=== PATIENT | male | born 1975 | race African-American/Black ===

== ENCOUNTER 2016-08-21 14:07 | Emergency (ER) ==
[2016-08-21] MEDS ORDERED: ZOFRAN ODT ONE (15:04)
[2016-08-21] MEDS ORDERED: ZOFRAN ODT PO ONE (15:05)
[2016-08-21 15:13] LABS: MANUAL DIFF NEEDED? NO
--- NOTE | 2016-08-21 15:14 | PROVIDER DOCUMENTATION ---
[facility]-EENT General - General Source: patient - History of Present Illness-EENT General EENT Location: reports: ear (L) Quality of Pain: reports: sharp Severity: reports: mild Onset/Duration: reports: other (two weeks) Timing: reports: still present Prearrival Treatment: Initiated no prearrival treatment Associated Symptoms: reports: ear drainage Similar Symptoms Previously?: No Recently seen or treated by another doctor?: No - Ears Ear Problem Symptoms: reports: discharge <Julia Aguila - Last Filed: 08/21/16 16:33> <Polo Mariscal - Last Filed: 08/21/16 16:42> - General Chief Complaint: Earache Stated Complaint: LEFT EAR PAIN Time Seen by Provider: 08/21/16 14:56 Allergies/Adverse Reactions: Patient Allergies Allergy/AdvReac Type Severity Reaction Status Date / Time No Known Allergies Allergy Verified 08/21/16 14:42 Home Medications: Home Medication List Medication Instructions Recorded Confirmed Last Taken Type Acetaminophen with Codeine 1 each PO TID PRN #10 tablet 08/21/16 Unknown Rx [Tylenol with Codeine #3 Tablet] Amoxicillin 500 mg PO BID #20 tablet 08/21/16 Unknown Rx Ondansetron HCl [Zofran] 4 mg PO Q8H PRN #10 tablet 08/21/16 Unknown Rx - History of Present Illness-EE General Nature of Presenting Problem: Pt is a 40 yom who came to the ED with a cc of an ear ache. Pt reports his ear has been bothering him for two weeks. Pt report the left side of his neck swells and he has drainage from his ear. (Julia Aguila) Review of Systems - Adult - REVIEW OF SYSTEMS - ADULT Constitutional: denies: chills, fever Eyes: reports: no symptoms reported Ears, Nose, Mouth & Throat: reports: ear pain. denies: sinus problem, mouth/ dental pain Cardiovascular: reports: no symptoms reported Respiratory: reports: no symptoms reported Gastrointestinal: reports: vomiting. denies: diarrhea, nausea Genitourinary: reports: no symptoms reported Musculoskeletal: reports: no symptoms reported Integumentary: reports: no symptoms reported Neurological: reports: no symptoms reported Psychiatric: reports: no symptoms reported Endocrine: reports: no symptoms reported Hematologic/Lymphatic: reports: no symptoms reported Allergic/Immunologic: reports: no symptoms reported All Other Systems: Reviewed and Negative <Julia Aguila - Last Filed: 08/21/16 16:33> Past History - Adult - PAST MEDICAL HISTORY-ADULT Review of Records: reports: Old Records Reviewed, Nursing Assessment Review Major Childhood Illnesses: reports: denies history Cardiovascular: reports: denies history Respiratory: reports: denies history Gastrointestinal: reports: denies history Obstetrical/Gynecological: reports: denies history Genitourinary: reports: denies history Musculoskeletal: reports: denies history Neurological: reports: denies history Endocrine/Immune: reports: denies history Other Conditions: reports: denies history - PRIOR SURGERIES/PROCEDURES Surgical/Procedure History: reports: hernia repair - IMMUNIZATION STATUS Childhood Immunizations: See Nurse Assessment Flu Vaccine: See Nurse Assessment - FAMILY HISTORY Family History: reviewed, not pertinent - SOCIAL HISTORY Smoking: cigarettes Substance Use: marijuana <Julia Aguila - Last Filed: 08/21/16 16:33> Physical Exam- EENT - Physical Exam EENT Initial Vital Signs Reviewed: Yes General Appearance: alert, mild distress Ear Exam: left ear: TM bulging Nasal Exam: normal inspection Throat Exam: normal mouth inspection, pharynx normal Neck: lymphadenopathy (left) Respiratory: chest non-tender, lungs clear, normal breath sounds Cardiovascular: normal peripheral pulses, regular rate, rhythm, no edema, no gallop, no JVD, no murmur Abdominal Exam: normal bowel sounds Back Exam: normal inspection Extremity: normal range of motion Integumentary: normal color, normal turgor, warm/dry Neurologic: grossly normal Psych/Mental Status: normal mood/affect, normal thought content, normal thought process, oriented x 3 <Julia Aguila - Last Filed: 08/21/16 16:33> Progress - CT/MRI 1 CT Study: Neck (small scattered nodes but no mass or abscess) <Julia Aguila - Last Filed: 08/21/16 16:33> <Polo Mariscal - Last Filed: 08/21/16 16:42> - PLAN OF CARE/RESULTS Progress/Plan/Lab Results: Vital Signs - 24 hr 08/21/16 14:14 Temperature 98.2 F Pulse Rate 85 Respiratory 16 Rate Blood Pressure 148/84 O2 Sat by Pulse 100 Oximetry Orders Category Date Time Status NECK W/CONTRAST [CT] Stat Exams 08/21/16 14:56 Ordered BASIC METABOLIC PANEL [CHEM] Stat Lab 08/21/16 15:04 Ordered CBC WITH ELECTRONIC DIFF [HEME] Stat Lab 08/21/16 15:08 Ordered MONO SCREEN [SERO] Stat Lab 08/21/16 15:08 Ordered Ondansetron Odt [Zofran Odt] Med 08/21/16 15:04 Discontinued 4 mg .ROUTE .STK-MED ONE Ondansetron Odt [Zofran Odt] Med 08/21/16 15:05 Discontinued 4 mg PO NOW ONE Laboratory Tests 08/21/16 08/21/16 08/21/16 15:07 15:07 15:07 WBC 11.42 H RBC 5.22 Hgb 16.5 Hct 49.4 MCV 94.6 MCH 31.6 H MCHC 33.4 RDW Std Deviation 12.6 Plt Count 238 MPV 11.2 H Neut % (Auto) 63.5 Lymph % (Auto) 28.9 [place] % (Auto) 6.4 Eos % (Auto) 1.0 Baso % (Auto) 0.2 Neut # (Auto) 7.26 H Lymph # (Auto) 3.30 [place] # (Auto) 0.73 H Eos # (Auto) 0.11 Baso # (Auto) 0.02 Sodium 142 Potassium 4.1 Chloride 100 Carbon Dioxide 28 Anion Gap 14 BUN 9 Creatinine 0.9 Estimated GFR/1.73 m2 > 60 BUN/Creatinine Ratio 10 Glucose 84 Calculated Osmolality 281 Calcium 9.2 Monoscreen NEGATIVE (Julia Aguila) Departure - Departure Time of Disposition Order: 16:33 Certified Medical Emergency: Emergent <Julia Aguila - Last Filed: 08/21/16 16:33> - Departure Time of Disposition Order: 16:37 Certified Medical Emergency: Emergent <Polo Mariscal - Last Filed: 08/21/16 16:42> - Departure DIAGNOSIS: Lymphangiopathy Otitis media of left ear Qualifiers: Otitis media type: unspecified Chronicity: unspecified Qualified Code(s): H66.92 - Otitis media, unspecified, left ear Disposition: HOME 01 Condition: Stable Additional Instructions: Made aware of imaging results and treatment plan. All questions answered with regard to treatment. No active vomiting. ED Follow Up Instructions: You have been treated by a care provider in the Emergency Department. These instructions are being provided to you so you can have an understanding of how to care for yourself upon discharge. Upon discharge from the Emergency Department, you are responsible for making arrangements for follow-up care by a physician of your choice. Take all prescribed medications as directed. Return to the Emergency Department immediately for any new or worsening symptoms. You may call the Physician Referral phone number at [phone] to obtain a list of Physicians who are taking new patients. Prescriptions: Amoxicillin 500 mg PO BID #20 tablet Acetaminophen with Codeine [Tylenol with Codeine #3 Tablet] 1 each PO TID PRN # 10 tablet PRN Reason: Pain Ondansetron HCl [Zofran] 4 mg PO Q8H PRN #10 tablet PRN Reason: Nausea Referrals: None,PCP [Primary Care Provider] - Attestation - Scribe Verification/Attestation Scribe:: Julia Aguila Acting as Scribe for:: Polo Mariscal Scribe documention review:: This chart was documented by a scribe and accurately reflects the service the provider performed and the decisions made by the provider. <Julia Aguila - Last Filed: 08/21/16 16:33> Physician Attestation
[2016-08-21 15:32] LABS: BASO% 0.2 % (0.0-0.8); EOS# 0.11 X1000 (0.0-0.7); HEMATOCRIT 49.4 % (42.0-52.0); HEMOGLOBIN 16.5 g/dL (14.0-18.0); LYMPH% 28.9 % (20.5-51.1); MCH 31.6 PG (27-31); MCHC 33.4 g/dL (33-37); MCV 94.6 FL (81-99); MONO# 0.73 X1000 (0.11-0.59); MONO% 6.4 % (1.7-9.3); MPV 11.2 FL (7.4-10.4); NEUT% 63.5 % (42.2-75.2); PLT 238 X1000 (130-400); RBC 5.22 XMIL (4.7-6.1)
[2016-08-21 15:38] LABS: AGAP 14; BUN 9 mg/dL (8-22); CALCIUM 9.2 mg/dL (8.8-10.2); CHLORIDE 100 mmol/L (98-107); COSMO 281; POTASSIUM 4.1 mmol/L (3.5-5.1); SODIUM 142 mmol/L (136-145); TCO2 28 mmol/L (25-35)
[2016-08-21 17:07] VITALS: BP 140/94
--- NOTE | 2016-08-21 17:10 | Diag Imaging Result Document ---
PROCEDURE NAME: NECK W/CONTRAST - 08/21/2016 STUDY: CT neck with intravenous contrast. No sinus opacification. No air fluid levels. The submandibular and parotid glands are symmetrical. Normal thyroid and larynx. No precervical soft tissue swelling. No neck mass or abscess identified. There are small lymph nodes scattered bilaterally in the neck. IMPRESSION: Multiple small lymph nodes scattered bilaterally in the neck, but no distinct mass or abscess. A preliminary report was given at 4:31 p.m.
== END 2016-08-21 17:08 | disposition home or self-care (01) ==
LOC: ED 14:07
DX: H66.92 Otitis media, unspecified, left ear (principal); R59.0 Localized enlarged lymph nodes; H92.02 Otalgia, left ear; R22.1 Localized swelling, mass and lump, neck; H92.12 Otorrhea, left ear; R11.10 Vomiting, unspecified
CPT/HCPCS: 70491; 80048; 85025; 86308; Q9966